=== PATIENT | male | born 1955 | race Caucasian/White ===

== ENCOUNTER 2018-08-11 11:56 | Emergency (ER) | payer SELFPAY ==
[2018-08-11] MEDS: HYDROCODONE/APAP (5/325) TAB PO (13:40)
== END 2018-08-11 16:23 | disposition home or self-care (01) ==
LOC: E/R 11:56
DX: M54.6 Pain in thoracic spine (principal)
CPT/HCPCS: 71045; 93005; 99284-25